=== PATIENT | female | born 1950 | race American Indian/Alaskan Native ===

== ENCOUNTER 2016-08-15 11:10 | Outpatient (CLI) | payer MEDICARE, OTHER, BC | END 2016-08-15 11:11 | disposition home or self-care (01) | LOC: SPVWC 11:10 | PROVIDERS: ATTEND Physician Assistant | DX: Z12.31 Encounter for screening mammogram for malignant neoplasm of breast (principal) | CPT/HCPCS: 77067; G0202 ==